=== PATIENT | female | born 1985 | race Caucasian/White ===

== ENCOUNTER 2017-01-06 01:38 | Inpatient (IN) | payer OTHER ==
[~2017-01-06] VITALS: Ht 165.1 cm; Wt 115.2 kg
[~2017-01-06 01:38] MED LIST: ATIVAN0.5 M1 PO; CYCLOBENZAPRINE5 M2 PO; DOCUSATE SODIU100 MG PO; GABAPENTIN300 M2 PO; IBUPROFEN800 MG PO; LEXAPRO10 M1 PO; MEDROL4 M2 PO; PERCOCET 325 MG1 TA2 PO; PERCOCET 5-3251 EACH PO; WELLBUTRIN; XANAX0.25 M1 PO; ZOLOFT50 MG PO
[2017-01-06] MEDS ORDERED: WELLBUTRIN SR150 M1 PO (15:19)
--- NOTE | 2017-01-06 16:02 | Admission Core Measures ---
Admission Lab Results I reviewed the following labs: Laboratory Tests 01/06 1120 Urines Urine Test NEGATIVE Admission Meds I reviewed the following Meds: Current Medications Sig/Amos Start time Last Medication Dose Stop Time Status Admin Cefazolin Sodium 2,000 MG ONCE 01/06 0000 NR (Kefzol-Ancef Inj) 01/06 2359 Dexamethasone 10 MG ONCE 01/06 0000 NR (Decadron Inj) 01/06 2359 Heparin Sodium 5,000 UNIT ONCE 01/06 0000 NR (Porcine) 01/06 2359 Acute Coronary Syndrome Inclusion Criteria ACS Diagnosis No Inpatient Core Measures LDL Reminder: If No, please order W/I first 24hr of stay Congestive Heart Failure Inclusion Criteria CHF Diagnosis No Cerebrovascular accident Inclusion Criteria CVA/TIA Diagnosis No Inpatient Core Measures Bedside Swallow Eval Reminder: If BSE failed, place ST order Antithrombotic Reminder: Order Antithrombotic Medication by end of day 2 Antithrombotic Reminder: Document Reason Antithrombotic Not ordered by end of day 2 AFIB/Flutter Reminder: If Present, add to problem list AFIB/Flutter Reminder: Order Anticoag Medication for pts with AFIB/Flutter Atherosclerosis Reminder: If Present, add to problem list LDL Reminder: If No, please order W/I first 24hr of stay PT Order Reminder: If No, please order Venous thromboembolism Inpatient Core Measures VTE Risk Factors: Obesity, Surgery No [facility] VTE prophylaxis d/t No contraindications No VTE Pharm Prophylaxis d/t Surgical contraindication Inclusion Criteria - Per Current guidelines, there needs to be overlap - treatment for the first 5 days of Warfarin therapy. - Parenteral Anticoagulation (IV or SC) needs to be - given along with Warfarin therapy. VTE Diagnosis No VTE Type NONE VTE Confirmed by (Test) NONE Problem List As ranked by this Provider includes Assessment & Plan 1. S/P laparoscopic sleeve gastrectomy 2. Morbid obesity 3. Anxiety 4. Sleep apnea HOME MEDS Home Med List Alprazolam (Xanax) 0.25 MG TABLET 1 TAB PO BIDP PRN ANXIETY (Reported) Bupropion HCl (Wellbutrin Sr) 150 MG TABLET.ER 1 TAB PO BID DEPRESSION ( Reported) Escitalopram Oxalate (Lexapro) 10 MG TABLET 1 TAB PO DAILY MENTAL HEALTH ( Reported) Discontinued Medications [WELLBUTRIN XR] DEPRESSION (Reported) Discontinued reason: Changed Dose
--- NOTE | 2017-01-06 16:46 | Operative Report ---
Operative/Inv Procedure Report Surgery Date: 01/06/17 Name of Procedure: Laparoscopic Sleeve Gastrectomy Pre-Operative Diagnosis: Morbid Obesity Post-Operative Diagnosis: same Estimated Blood Loss: less than 50ml Surgeon/Sexual Assault Counsellor: EDIN RAMIREZ MD Anesthesia: general endotracheal tube IV Fluids: LR Urine Output: n/a Specimens: portion of stomach Complications: none Condition: stable Operative Indication: please see admission typed H and P Operative/Procedure Note Note: After informed consent and proper identification the patient was taken to the operating room and placed on the operating table supine position Venodyne stockings were applied she underwent a general endotracheal anesthetic abdomen was prepped and draped in normal sterile fashion using an Ethicon Visiport and 0 left upper quadrant we had excellent visualization we insufflated the abdomen with 14 mm of CO2 pressure we had anesthesia decompress the stomach with a orogastric tube we placed additional trochars 25 mm trochars in each of the subcostal margins a 15 mm trocar in the right mid abdomen and a Anjelica liver retractor in the upper midline to retract the left lobe of the liver. We began using a sonic excision scalpel dividing the vascular attachments along the greater curvature of the stomach opposite the angularis of the stomach 6 cm from the pylorus and divided the vessels all the way up to the angle of Hiss reflecting the fundus of the stomach medially off of the left magdalena we had anesthesia remove the orogastric tube in place a 38 Grenadian bougie using this as a guide and using an Endo KAROLINE stapler we fired 2 black load cartridges with seam guard followed by 2 purple cartridges with seam guard to create the sleeve we had anesthesia remove the bougie. Removed a Anjelica liver retractor remove the remnant stomach in a 15 Endo Catch bag and removed all trochars under direct visualization sponge and instrument counts were correct we closed the skin incisions with 4-0 Monocryl subcuticular stitches Steri-Strips and dry sterile dressings were placed patient tolerated the procedure without complications and was taken to the recovery room in stable condition Discharge Disposition: PACU
[2017-01-06] MEDS ORDERED: HYCET 7.5 MG-3473 ML PO (17:01)
[2017-01-06] MEDS ORDERED: PROTONIX40 M3 PO (17:01)
--- NOTE | 2017-01-06 17:07 | Patient Discharge Instructions ---
Discharge Instructions General Discharge Information You were seen/treated for: morbid obesity You had these procedures: laparoscopic sleeve gastrectomy (01/06/17) Watch for these problems: fever>101.3, increased pain, redness/swelling/drainage, dizziness, shortness of breath, chest pains Call Surgeon to remove: Other Do not soak the wound: Yes Daily wet to dry dressings: No No bath, but you may shower: Yes Diet Continue normal diet: No Recommended Diet: Bariatric Additional DIET Information: weekly stage advancement Activity Full Activity/No Limits: No (limit less than 10 lbs) Activity Self Limited: Yes Pounds, do NOT lift more than: 10 Acute Coronary Syndrome Inclusion Criteria At DC or during hospital stay patient has or had the following: ACS DIAGNOSIS No Discharge Core Measures Meds if any: Prescribed or Continued at Discharge LIZABETH/ARB if EF <40% No Beta-Sita No Meds if any: NOT Prescribed or Continued at Discharge Congestive Heart Failure Inclusion Criteria At DC or during hospital stay patient has or had the following: CHF DIAGNOSIS No Discharge Core Measures Meds if any: Prescribed or Continued at Discharge LIZABETH/ARB for EF <40% No Meds if any: NOT Prescribed or Continued at Discharge Cerebrovascular accident Inclusion Criteria At DC or during hospital stay patient has or had the following: CVA/TIA Diagnosis No Discharge Core Measures Meds if any: Prescribed or Continued at Discharge Meds if any: NOT Prescribed or Continued at Discharge Venous thromboembolism Inclusion Criteria VTE Diagnosis No VTE Type NONE VTE Confirmed by (Test) NONE Discharge Core Measures - Per Current guidelines, there needs to be overlap - treatment for the first 5 days of Warfarin therapy. - If discharged on Warfarin prior to 5 days of - overlap therapy, the patient will need to be - assessed for post discharge needs including - *Post discharge parental anticoagulation - *Warfarin and/or parental anticoagulation education - *Follow up date to check INR post discharge At least 5 days overlap therapy as Inpatient No Meds if any: Prescribed or Continued at Discharge Note: Overlap Therapy is Warfarin and Anticoagulant Meds if any: NOT Prescribed or Continued at Discharge
--- NOTE | 2017-01-06 17:12 | Surg Short-stay <48hrs Dis Sum ---
See Addendum Visit Information Visit Dates Admission Date: 01/06/17 Discharge Date: 01/08/17 Surgical Short Stay DC Summary Admission Diagnosis: morbid obesity Final Diagnosis: same Procedure(s): laproscopic sleeve gastrectomy Summary/Significant Findings: admitted after undergoing the schedule procedure and after a quick recovery n pacu admitted for post op care . Please see operative note for porcedure details .Post op day #1 , upper GI STUDY findings were normal study and intiated on stage I diet . Pain is adequately controlled with oral meds and remained vitally stable and will be discahrged home. Condition at Discharge: STABLE Discharge Disposition: home or self care Discharge instructions provided to patient/family: Yes Post discharge follow-up plan: Call office for to confirm/schedule for the follow up appointment.
--- NOTE | 2017-01-06 17:38 | PN- Bariatrics ---
Subjective Subjective: POST-OP NOTE: Reports expected geovanny-incisional pain. Some itchiness reported. No nausea. Still in pacu. No dizziness. No shortness of breath. No chest pains. Not yet out of bed. Slight hive reaction reported in pacu, but unclear etiology. Objective Vital Signs and I&Os pacu flowsheet reviewed Physical Exam: General - alert & oriented x 3. comfortable. no acute distress. Skin - hives noted over chest wall. Lungs - clear bilaterally. no w/r/r. Cardiac - s1s2. slightly tachy, rate 100s. Abdomen - soft. dressings c/d/i. no drains. Extremities - warm bilaterally. no c/c/e. calves soft and nontender b/l. athrombics active. Assessment/Plan Assessment/Plan This 31 year old white female with hx morbid obesity POD#0 s/p lap sleeve gastrectomy stage 1 bariatric diet npo after midnight for upper gi study in am pain control as needed add benadryl for itching hep sc - dvt ppx protonix - gi ppx oob/ambulation f/u am labs TRC, nasal cpap if tolerated will d/w Core Measures/Miscellaneous Venous Thromboembolism VTE Risk Factors: Obesity, Surgery VTE Contraindications: No Contraindications VTE Diagnosis: No VTE Type: NONE VTE Confirmed by (Test): NONE Beta Sita Is Beta Sita a Home Med? No Antibiotics Is Patient on Antibiotics? No
[2017-01-06 18:50] VITALS: BP 123/80
[2017-01-06 22:36] VITALS: BP 114/86
[2017-01-07 06:56] VITALS: BP 118/74
--- NOTE | 2017-01-07 07:08 | PN- Bariatrics ---
Subjective Subjective: Reports epigastric and left upper abdominal discomfort. No nausea. Currently npo awaiting upper gi study this morning. No problems getting out of bed. Denies dizziness. No shortness of breath. Voiding well. She reports some back discomfort, which is a chronic issue related to spondylolithesis, that she feels might be aggravated from OR table positioning. Objective Vital Signs and I&Os Vital Signs Date Time Temp Pulse Resp B/P Pulse O2 O2 Flow FiO2 Ox Delivery Rate 01/07 0656 98.2 87 18 118/74 94 CPAP 01/07 0600 94 Room Air 01/07 0000 Room Air 01/06 2236 98.3 117 19 114/86 95 Room Air 01/06 2200 95 Room Air 01/06 2137 Room Air 01/06 1920 97 Room Air 01/06 1850 97 Room Air 01/06 1850 98.3 100 18 123/80 98 Nasal 2.0L Cannula Intake & Output 01/07 0800 01/07 0000 01/06 1600 01/06 0800 01/06 0000 01/05 1600 Intake Total 2615 Output Total 600 Balance 2014 Intake, IV 2225 Intake, Oral 390 Output, Urine 600 Patient 254 lb Weight Physical Exam: General - alert & oriented x 3. comfortable. no acute distress. Lungs - clear bilaterally. no w/r/r. Cardiac - s1s2. reg. Abdomen - soft. dressings c/d/i. expected geovanny-incisional tenderness. hypoactive bowel sounds appreciated. no drains. Extremities - warm bilaterally. no c/c/e. calves soft and nontender b/l. Assessment/Plan Assessment/Plan This 31 year old white female with hx morbid obesity, depression/anxiety, german ( nasal cpap) POD#1 s/p lap sleeve gastrectomy currently npo, awaiting upper gi study pain control as needed hep sc - dvt ppx protonix - gi ppx oob/ambulation f/u am labs TRC, nasal cpap if tolerated will d/w Core Measures/Miscellaneous Venous Thromboembolism VTE Risk Factors: Obesity, Surgery VTE Contraindications: No Contraindications VTE Diagnosis: No VTE Type: NONE VTE Confirmed by (Test): NONE Beta Sita Is Beta Sita a Home Med? No Antibiotics Is Patient on Antibiotics? No
[2017-01-07 09:22] LABS: ABSOLUTE BASOPHIL COUNT 0 /CUMM (0.0-0.2); ABSOLUTE EOSINOPHIL COUNT 0 /CUMM (0.0-0.7); ABSOLUTE GRANULOCYTE CT 10.2 /CUMM (1.4-6.5); ABSOLUTE LYMPH COUNT 1.1 /CUMM (1.2-3.4); ABSOLUTE MONOCYTE COUNT 0.7 /CUMM (0.10-0.60); BASOPHIL % 0 % (0.0-2.0); EOSINOPHIL % 0.2 % (0-5); GRANULOCYTE % 84.8 % (42.2-75.2); HEMATOCRIT 39.6 % (37-47); MEAN CORPUSCULAR HGB 28.5 PG (27.0-31.0); MEAN CORPUSCULAR VOLUME 86.3 FL (81.0-99.0); MEAN PLATELET VOLUME 8.3 FL (7.4-10.4); PLATELET COUNT 313 /CUMM (130-400); RBC DISTRIBUTION WIDTH 13.6 % (11.5-14.5); RED BLOOD CELL CT 4.59 /CUMM (4.20-5.40)
[2017-01-07] MEDS ORDERED: BUPROPION HCL100 M2 PO ×2 (09:43→15:03)
--- NOTE | 2017-01-07 09:50 | NUR ---
NURSING NOTE: PT LEFT FLOOR VIA STRETCHER WITH DISTRIBUTION FOR UPPER GI SERIES, PT AWAKE A/OX3, ROOM AIR, IVF PER MD ORDER, AWAIT RETURN TO FLOOR. DENIES COMPLAINTS/
--- NOTE | 2017-01-07 11:06 | NUR ---
nursing note: pt back to floor via stretcher with distribution s/p upper gi series xray pt awake, a/ox3, room air, settled into room. cont to olegior.
--- NOTE | 2017-01-07 11:14 | RADIOLOGY REPORT ---
EXAMINATION: FL UPPER GI SERIES CLINICAL INFORMATION: 31-year-old female, status post sleeve gastrectomy. Postop day 1. To assess for presence of leak. COMPARISON: None TECHNIQUE: A single contrast upper GI series with fluoroscopy and spot imaging was performed. The patient ingested Gastrografin without difficulty and was evaluated in the upright and recumbent positions. FINDINGS: Expected postsurgical changes of gastric sleeve surgery is noted. There is no evidence of any contrast leakage identified. There is no obstruction to the flow of Gastrografin visualized. FLUOROSCOPY TIME: 41 seconds. NUMBER OF IMAGES: 87 IMPRESSION: 1. Normal postsurgical changes of gastric sleeve surgery. 2. No evidence of Sleeve leak.
--- NOTE | 2017-01-07 12:22 | NUR ---
NURSING NOTE: PT STARTED ON STAGE 1 BARIATRIC DIET, DIET EXPLAINED, PT VERBALIZED UNDERSTANDING, PT DOESNT WANT IV TYLENOL OR TORADOL AT THIS TIME, DENIES NEED FOR PAIN MEDS, ENCOURAGED TO AMBULATE IN HALLWAY. CONT TO MONITOR/
--- NOTE | 2017-01-07 13:00 | NUR ---
Consult received for post-op diet education s/p sleeve gastrectomy, thank you for consult. Discussed post-op diet with pt as she had some questions. Provided a copy of vitamin handout as well and discussed. Encouraged post-op nutrition visits with RD. Pt has RD contact information and will call with any further questions.
[2017-01-07 13:56] VITALS: BP 132/81
[2017-01-07] MEDS ORDERED: DILAUDID2 M1 PO (15:03)
[2017-01-07 18:00] VITALS: BP 120/80
--- NOTE | 2017-01-07 21:57 | NUR ---
ALERT AND ORIENTED X 3. VITAL SIGNS STABLE. DENIES CHEST PAIN. + PULSES ON ROOM AIR. STEADY GAIT. BARIATRIC STAGE 1. DSGS CLEAN, DRY AND INTACT MEDICATION GIVEN FOR PAIN. PATIENT RESTING AT THIS TIME. WILL CONTINUE TO MONITOR
[2017-01-07 22:29] VITALS: BP 122/62
[2017-01-08 07:17] VITALS: BP 126/76
--- NOTE | 2017-01-08 07:46 | PN- Bariatrics ---
Subjective Subjective: awake alert comfortable no major complaints at this time denies cp, sob, no n+v with stageI diet Objective Vital Signs and I&Os Vital Signs Date Time Temp Pulse Resp B/P Pulse O2 O2 Flow FiO2 Ox Delivery Rate 01/08 0717 99.1 69 20 126/76 94 01/08 0000 Room Air 01/07 2229 98.2 84 19 122/62 94 Room Air 01/07 2200 96 Room Air 01/07 1800 98.3 97 18 120/80 96 Room Air 01/07 1400 95 Room Air 01/07 1356 98.1 99 18 132/81 96 Room Air 01/07 0800 20 95 Room Air Intake & Output 01/08 0800 01/08 0000 01/07 1600 01/07 0800 01/07 0000 01/06 1600 Intake Total 700 951 820 0659 Output Total 600 400 550 600 Balance 100 933 795 6853 Intake, IV 146 474 6985 Intake, Oral 100 540 180 390 Number 0 Bowel Movements Output, Urine 600 400 550 600 Patient 254 lb Weight Physical Exam: cv: rrr lungs: clear abd: soft no guarding to palp drsg dry ext: no calf tenderness distal cms intact Assessment/Plan Assessment/Plan stable surgically plan oob/ambulate plan for d/c later this am Core Measures/Miscellaneous Venous Thromboembolism VTE Risk Factors: Obesity, Surgery VTE Contraindications: No Contraindications VTE Diagnosis: No VTE Type: NONE VTE Confirmed by (Test): NONE Beta Sita Is Beta Sita a Home Med? No Antibiotics Is Patient on Antibiotics? No
[2017-01-08 08:15] LABS: ABSOLUTE BASOPHIL COUNT 0 /CUMM (0.0-0.2); ABSOLUTE EOSINOPHIL COUNT 0 /CUMM (0.0-0.7); ABSOLUTE GRANULOCYTE CT 7.9 /CUMM (1.4-6.5); ABSOLUTE LYMPH COUNT 3.4 /CUMM (1.2-3.4); BASOPHIL % 0.4 % (0.0-2.0); EOSINOPHIL % 0.2 % (0-5); GRANULOCYTE % 64.2 % (42.2-75.2); HEMATOCRIT 37.5 % (37-47); MEAN CORPUSCULAR HGB 28.7 PG (27.0-31.0); MEAN CORPUSCULAR HGB CONC 33.1 G/DL (33.0-37.0); MEAN CORPUSCULAR VOLUME 86.6 FL (81.0-99.0); MEAN PLATELET VOLUME 8.5 FL (7.4-10.4); PLATELET COUNT 302 /CUMM (130-400); RBC DISTRIBUTION WIDTH 14.1 % (11.5-14.5); RED BLOOD CELL CT 4.33 /CUMM (4.20-5.40); WHITE BLOOD CELL COUNT 12.4 /CUMM (4.8-10.8)
== END 2017-01-08 11:35 | DRG 403 ==
LOC: ENRESERVDT → ENRESERVTM → 2NB 01:38 → SDA 01:38 → 2NB 18:18
PROVIDERS: Physician Assistant; Physician Assistant Surgical; ADMIT Surgery
PROC: 0DB64Z3 Excision of Stomach, Percutaneous Endoscopic Approach, Vertical (ICD-10-PCS; principal; 2017-01-06)
DX: E66.01 Morbid (severe) obesity due to excess calories (principal); Z71.3 Dietary counseling and surveillance; F41.9 Anxiety disorder, unspecified; G47.30 Sleep apnea, unspecified; Z68.41 Body mass index [BMI] 40.0-44.9, adult
CPT/HCPCS: 36415; 74240; 81025; 82436; 88307; 88312; J0131; J0690; J1100; J1170; J1200; J1644; J1885; J2405; J3490; J7042

== ENCOUNTER 2017-04-22 05:10 | Emergency (ER) | payer OTHER ==
[~2017-04-22 05:10] MED LIST changes: +BUPROPION HCL100 M2 PO; +DILAUDID2 M1 PO; +HYCET 7.5 MG-3473 ML PO; +PROTONIX40 M3 PO; +WELLBUTRIN SR150 M1 PO
[2017-04-22 05:28] VITALS: BP 107/67
[2017-04-22 06:09] LABS: ABSOLUTE BASOPHIL COUNT 0 /CUMM (0.0-0.2); ABSOLUTE EOSINOPHIL COUNT 0.2 /CUMM (0.0-0.7); ABSOLUTE GRANULOCYTE CT 4.1 /CUMM (1.4-6.5); ABSOLUTE LYMPH COUNT 3.5 /CUMM (1.2-3.4); ABSOLUTE MONOCYTE COUNT 0.5 /CUMM (0.10-0.60); BASOPHIL % 0.5 % (0.0-2.0); GRANULOCYTE % 49.4 % (42.2-75.2); HEMATOCRIT 41.2 % (37-47); MEAN CORPUSCULAR HGB 29.2 PG (27.0-31.0); MEAN CORPUSCULAR HGB CONC 32.9 G/DL (33.0-37.0); MEAN CORPUSCULAR VOLUME 88.8 FL (81.0-99.0); MEAN PLATELET VOLUME 8.3 FL (7.4-10.4); PLATELET COUNT 286 /CUMM (130-400); RBC DISTRIBUTION WIDTH 14.6 % (11.5-14.5); RED BLOOD CELL CT 4.63 /CUMM (4.20-5.40); WHITE BLOOD CELL COUNT 8.3 /CUMM (4.8-10.8)
--- NOTE | 2017-04-22 06:28 | ED GI/GU/ABDOMINAL COMPLAINT ---
History of Present Illness General Chief Complaint: General Adult Stated Complaint: NVD AND DIZZY Source: patient, old records Exam Limitations: no limitations Vital Signs & Intake/Output Vital Signs & Intake/Output Vital Signs Date Time Temp Pulse Resp B/P B/P Pulse O2 O2 Flow FiO2 Mean Ox Delivery Rate 04/22 0528 97.0 57 22 107/67 98 Allergies Coded Allergies: NO KNOWN ALLERGIES (03/03/11) Reconcile Medications Alprazolam (Xanax) 0.25 MG TABLET 1 TAB PO BIDP PRN ANXIETY (Reported) Bupropion HCl 100 MG TABLET 1 TAB PO TID MOOD Escitalopram Oxalate (Lexapro) 10 MG TABLET 1 TAB PO DAILY MENTAL HEALTH ( Reported) Hydromorphone HCl (Dilaudid) 2 MG TABLET 1-2 TAB PO Q4-6 PRN PRN PAIN CONTROL Pantoprazole Sodium (Protonix) 40 MG TABLET. 1 TAB PO DAILY ulcer risk reduction Triage Note: PER PT ABD DISCOMFORT, DIZZY +NAUSEA LIGHT HEADED BLURRY VISION PT HAD GASTRIC SLEEVE IN DECEMBER AND MENSES HAVE BEEN IRREGULAR SINCE SURGERY. Triage Nurses Notes Reviewed? yes LMP (ages 10-50): unknown ? n Is pt currently ? No Onset: Just prior to arrival Duration: hour(s):, constant, changing over time Timing: single episode today Quality/Severity: aching, moderate, vomiting Location: unknown Radiation: no radiation Activities at Onset: physical activity Prior Abdominal Problems: none Past Sexual History: Unobtainable at this time Associated Symptoms: abdominal pain, loss of appetite, nausea/vomiting HPI: Several hours prior to admission while working patient felt lightheaded dizzy and seeing stars developing nausea vomiting with feeling of weakness. She denies chest pain cough shortness of breath diarrhea abdominal pain headache dysuria rash bleeding. Past History Travel History Traveled to [place] past 21 day No Medical History Any Pertinent Medical History? see below for history Neurological: NONE EENT: NONE Cardiovascular: NONE Respiratory: NONE Gastrointestinal: GASTRIC SLEEVE Hepatic: NONE Renal: NONE Musculoskeletal: osteoarthritis, DISC PROBLEMS Psychiatric: anxiety, depression Endocrine: NONE Blood Disorders: NONE Cancer(s): NONE History of MRSA: No History of VRE: No History of CDIFF: No Influenza Vaccine: 08/26/16 Surgical History Surgical History: Psychosocial History Who do you live with Mother Services at Home None What is your primary language Georgian Tobacco Use: Never used Family History Hx Contributory? No Review of Systems Review of Systems Constitutional: Reports: see HPI, weakness. EENTM: Reports: no symptoms. Respiratory: Reports: no symptoms. Cardiovascular: Reports: no symptoms. GI: Reports: see HPI, abdominal pain, nausea, vomiting. Genitourinary: Reports: no symptoms. Musculoskeletal: Reports: no symptoms. Skin: Reports: no symptoms. Neurological/Psychological: Reports: see HPI. Hematologic/Endocrine: Reports: no symptoms. Immunologic/Allergic: Reports: no symptoms. All Other Systems: Reviewed and Negative Physical Exam Physical Exam General Appearance: well developed/nourished, alert, awake, anxious, mild distress, obese Head: atraumatic, normal appearance Eyes: Bilateral: normal appearance, PERRL, EOMI, normal inspection. Ears, Nose, Throat, Mouth: hearing grossly normal, moist mucous membrane Neck: normal inspection, supple, full range of motion, normal alignment Respiratory: normal breath sounds, chest non-tender, no respiratory distress, quiet respiration, lungs clear Cardiovascular: regular rate/rhythm, murmur, norml femoral pulses equa Peripheral Pulses: 4+ carotid (R), 4+ carotid (L) Gastrointestinal: normal bowel sounds, soft, non-tender, no organomegaly Back: normal inspection, normal range of motion Extremities: normal range of motion, no ligament instability Neurologic/Psych: no motor/sensory deficits, awake, alert, oriented x 3, normal gait, normal mood/affect, 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 No Severe Sepsis Present: No Septic Shock Present: No Progress Differential Diagnosis: biliary colic, gastritis, pancreatitis, PUD/GERD Plan of Care: Orders Procedure Date/time Status URINE 04/22 541 Complete URINALYSIS 04/22 0541 Complete LIPASE 04/22 0541 Complete COMPREHENSIVE METABOLIC PANEL 04/22 0541 Complete CBC WITHOUT DIFFERENTIAL 04/22 541 Complete Current Medications Sig/Amos Start time Last Medication Dose Stop Time Status Admin Sodium Chloride 1,000 ML BOLUS ONE 04/22 0545 AC 04/22 (Normal Saline 0.9%) 04/22 0644 0605 Laboratory Tests 04/22/17 0555: Anion Gap 11, Estimated GFR > 60, BUN/Creatinine Ratio 15.0, Glucose 81, Calcium 9.6, Total Bilirubin 0.5, AST 26, ALT 43, Alkaline Phosphatase 79, Total Protein 7.2, Albumin 4.3, Globulin 2.9, Albumin/Globulin Ratio 1.5, Lipase 64, CBC w Diff NO MAN DIFF REQ, RBC 4.63, MCV 88.8, MCH 29.2, RDW 14.6 H, MPV 8.3, Gran % 49.4, Lymphocytes % 41.9, Monocytes % 6.2, Eosinophils % 2.0, Basophils % 0.5, Absolute Granulocytes 4.1, Absolute Lymphocytes 3.5 H, Absolute Monocytes 0.5, Absolute Eosinophils 0.2, Absolute Basophils 0, PUBS MCHC 32.9 L 04/22/17 0545: Urine Color YEL, Urine Clarity CLEAR, Urine pH 5.5, Ur Specific Wallace >= 1.030 , Urine Protein TRACE H, Urine Ketones NEG, Urine Nitrite NEG, Urine Bilirubin NEG, Urine Urobilinogen 1.0, Ur Leukocyte Esterase NEG, Ur Microscopic SEDIMENT EXAMINED, Urine RBC FEW H, Urine WBC 1-3 H, Ur Epithelial Cells RARE, Urine Bacteria FEW H, Urine Hemoglobin TRACE-LYSED, Urine Glucose NEG, Urine Test NEGATIVE Initial ED EKG: none Departure Departure Time of Disposition: 634 Disposition: HOME OR SELF CARE Condition: Stable Clinical Impression Primary Impression: Nausea and vomiting Qualifiers: Vomiting type: unspecified Vomiting Intractability: non-intractable Qualified Code: R11.2 - Nausea with vomiting, unspecified Secondary Impressions: Dehydration syndrome Referrals: RYLEY ACE MD (PCP/Family) Departure Forms: Customer Survey General Discharge Information RELEASE- WORK Prescriptions: Current Visit Scripts Ondansetron (Zofran Odt) 1 TAB SL TID PRN nausea #10 TAB
[2017-04-22] MEDS ORDERED: ZOFRAN ODT4 M1 SL (06:36)
== END 2017-04-22 06:53 ==
LOC: ERH 05:10
PROVIDERS: Emergency Medicine
DX: R11.2 Nausea with vomiting, unspecified (principal); E86.0 Dehydration
CPT/HCPCS: 81001; 81025; 96374; J2405

== ENCOUNTER 2017-10-18 10:40 | Emergency (ER) | payer OTHER ==
[~2017-10-18] VITALS: Ht 165.1 cm; Wt 88.9 kg
[~2017-10-18 10:40] MED LIST changes: +ZOFRAN ODT4 M1 SL
[2017-10-18 10:58] VITALS: BP 115/71
== END 2017-10-18 13:32 | disposition admitted as inpatient to this hospital (09) ==
LOC: ERH 10:40
DX: S39.012A Strain of muscle, fascia and tendon of lower back, initial encounter (principal)
CPT/HCPCS: J1644